=== PATIENT | male | born 1960 | race Caucasian/White ===

== ENCOUNTER 2019-06-20 08:28 | Emergency (ER) | payer MEDICAID ==
[2019-06-20] MEDS ORDERED: Sodium Chloride 0.9% 1,000 ML IV ONE (08:36)
[2019-06-20] MEDS: Sodium Chloride 0.9% 10 ML Syringe FLUSH PRN ×2 (08:54→10:58)
[2019-06-20 09:09] LABS: CHLORIDE,CL 97 mmol/L (98-107); SODIUM,NA 139 mmol/L (136-145)
[2019-06-20] MEDS ORDERED: Sodium Chloride 0.9% 10 ML Syringe FLUSH PRN (09:10)
[2019-06-20] MEDS ORDERED: Potassium Chloride 10 MEQ in Premix Bag 1 BAG IV ONE ×2 (09:11→10:45)
[2019-06-20 09:41] LABS: BARBITURATE SCREEN,URINE NEGATIVE (NEGATIVE); BENZODIAZEPINES SCREEN,URINE NEGATIVE (NEGATIVE); EDDP,URINE SCREEN NEGATIVE (NEGATIVE); TCA SCREEN,URINE NEGATIVE (NEGATIVE); THC SCREEN,URINE 50 NG/ML NEGATIVE (NEGATIVE)
[2019-06-20] MEDS ORDERED: Pantoprazole 40 MG Vial IVPUSH ONE (09:49)
[2019-06-20] MEDS ORDERED: Nicotine 21 MG/24 Hr Patch TRDERM ONE (10:27)
--- NOTE | 2019-06-20 10:34 | EDM.PDOC ---
ED HPI GENERAL MEDICAL PROBLEM - General Chief Complaint: General Stated Complaint: dry heaving, black stools, chills Time Seen by Provider: 06/20/19 08:35 Source of Information: Reports: Patient History Limitations: Reports: No Limitations - History of Present Illness INITIAL COMMENTS - FREE TEXT/NARRATIVE: Patient comes to ER with two week history of chills/sweats/black stools/dry heaves. No bloody emesis. No reported history of GI bleeds in past. Is daily drinker. Reports he is trying to "cut down" and indicates that he has "2 drinks a day". Heavy smoker. 1.5PPD. No fevers. No reported weight changes but says he has been drinking mostly Gatorade and has not had much in the way of food. Up to 4-5 episodes dry heaves/dark stools daily. Only pain complaint is rib discomfort which he attributes to dry heaves. Feels weak. Easily tires going up stairs. No other acute changes reported. - Related Data Allergies Allergy/AdvReac Type Severity Reaction Status Date / Time No Known Allergies Allergy Verified 06/20/19 08:57 Home Meds: Home Meds Ibuprofen 1 - 2 tab PO Q6H PRN 11/03/18 [History] Past Medical History HEENT History: Reports: Allergic Rhinitis Cardiovascular History: Reports: Hypertension Respiratory History: Reports: Bronchitis, Recurrent, COPD, Pneumonia, Recurrent , Pulmonary Fibrosis Gastrointestinal History: Reports: Chronic Constipation, Colon Polyp, Other ( See Below) Other Gastrointestinal History: Tubular adenomas excised at the cecum, transverse colon, and 25 cm via colonoscopy on 05/05/16 Genitourinary History: Reports: BPH, Prostate Disorder, Other (See Below) Other Genitourinary History: Erectile dysfunction, history of PSA elevation Musculoskeletal History: Reports: Arthritis, Neck Pain, Chronic, Osteoarthritis , Osteoporosis Neurological History: Reports: None Psychiatric History: Reports: Addiction, Anxiety, Depression, Other (See Below) Other Psychiatric History: ETOH abuse, previous illicit drug use Endocrine/Metabolic History: Reports: Osteoporosis Immunologic History: Reports: None Oncologic (Cancer) History: Reports: None Dermatologic History: Reports: None - Infectious Disease History Infectious Disease History: Reports: Chicken Pox, Mumps - Past Surgical History Head Surgeries/Procedures: Reports: None HEENT Surgical History: Reports: Oral Surgery, Other (See Below) Cardiovascular Surgical History: Reports: None GI Surgical History: Reports: Colonoscopy, Polypectomy, Other (See Below) Male Surgical History: Reports: Circumcision, Other (See Below) Endocrine Surgical History: Reports: None Neurological Surgical History: Reports: None Oncologic Surgical History: Reports: None Dermatological Surgical History: Reports: None - Past Imaging History Past Imaging History: Reports: Ultrasound (Abdominal aortic ultrasound on ) Social & Family History - Family History HEENT: Reports: None. Denies: Glaucoma, Macular Degeneration, Retinal Detachment Cardiac: Reports: Aneurysm, Bypass, CAD, Hypertension, CT, Other (See Below) Other Cardiac Family History: Father with three-vessel CABG in his 60s, father with abdominal aortic aneurysm in fatal thoracic aortic aneurysm rupture in his 80s, parents with hypertension Respiratory: Reports: None. Denies: COPD, PE, Sleep Apnea GI: Reports: Cholelithiasis, Colon Polyps, Other (See Below) Other GI Family History: Brother with history of colonic polyps and cholelithiasis : Reports: None. Denies: Dialysis, Renal Calculus, Renal Disease/ Insufficiency OBGYN: Reports: None. Denies: Endometriosis, Recurrent Spontaneous Musculoskeletal: Reports: Arthritis, Osteoarthritis, Other (See Below) Other Musculoskeletal Family History: Father with osteoarthritis Neurological: Reports: CVA, Other (See Below) Other Neurological Family History: Maternal grandfather with fatal CVA in his 50s Psychiatric: Reports: None. Denies: Abuse, Victim of, Anxiety, Depression, Psych Hospitalization(s), Suicide Attempt Endocrine/Metabolic: Reports: None. Denies: Diabetes, Type I, Diabetes, type II , Hypothyroidism, IDDM Hematologic: Reports: None. Denies: Anemia, SLE Immunologic: Reports: None. Denies: AIDS, HIV, SLE Dermatologic: Reports: None. Denies: Eczema, Psoriasis Oncologic: Reports: Lung, Metastatic, Other (See Below) Other Oncologic Family History: Sister with fatal metastatic lung cancer at age 49 with no history of tobacco use - Tobacco Use Smoking Status *Q: Current Every Day Smoker Packs/Tins Daily: 1.5 - Caffeine Use Caffeine Use: Reports: Soda Other Caffeine Use: 1 can per day - Alcohol Use Alcohol Use History: Yes Alcohol Use Frequency: Daily - Recreational Drug Use Recreational Drug Use: No Drug Use in Last 12 Months: No ED ROS GENERAL - Review of Systems Review Of Systems: See Below Constitutional: Reports: Chills, Weakness, Fatigue, Diaphoresis, Decreased Appetite. Denies: Fever HEENT: Reports: Sinus Problem (mild congestion). Denies: Throat Pain, Vertigo, Vision Change Respiratory: Reports: Cough (chronic, unchanged), Sputum (chronic/unchanged. COPD/Smoker). Denies: Shortness of Breath, Wheezing, Pleuritic Chest Pain Cardiovascular: Reports: Edema (mild, around ankles, chronic and unchanged). Denies: Chest Pain, Dyspnea on Exertion, Lightheadedness GI/Abdominal: Reports: Black Stool, Diarrhea, Decreased Appetite, Nausea, Vomiting. Denies: Abdominal Pain, Distension : Reports: No Symptoms Musculoskeletal: Reports: Other (no acute changes from baseline except for rib discomfort) Skin: Reports: No Symptoms Neurological: Reports: Weakness (global). Denies: Confusion, Dizziness, Headache, Paresthesia Psychiatric: Reports: No Symptoms ED EXAM, GENERAL - Physical Exam Exam: See Below Exam Limited By: No Limitations General Appearance: Alert, Other (noted to be a little wobbly when ambulating into ER, smells heavily of cigarette smoke) Eye Exam: Bilateral Eye: EOMI, PERRL Nose: No: Nasal Deformity, Nasal Swelling, Nasal Drainage Throat/Mouth: Normal Lips, Normal Voice, No Airway Compromise Head: Atraumatic, Normocephalic Neck: Supple, Non-Tender Respiratory/Chest: No Respiratory Distress, Rhonchi (bilaterally), Wheezing ( mild, bilaterally). No: Crackles, Rales Cardiovascular: No Murmur, Tachycardia Peripheral Pulses: 2+: Radial (L), Radial (R) GI/Abdominal: Soft, Non-Tender, No Distention, Abnormal Bowel Sounds (decreased throughout) (Male) Exam: Deferred Rectal (Males) Exam: Deferred Back Exam: No: CVA Tenderness (L), CVA Tenderness (R), Muscle Spasm, Paraspinal Tenderness, Vertebral Tenderness Extremities: Non-Tender, Normal Capillary Refill, Pedal Edema (mild, bilateral/ around ankles) Neurological: Alert, Oriented, No Motor/Sensory Deficits Psychiatric: Normal Affect, Normal Mood Skin Exam: Warm, Dry, Normal Color EKG INTERPRETATION EKG Date: 06/20/19 Time: 09:23 Rhythm: NSR Rate (Beats/Min): 95 [place]: Normal P-Wave: Present QRS: Normal ST-T: Other (No obvious acute changes suggestive of ischemia noted) QT: Prolonged Course - Vital Signs Last Recorded V/S: Last Vital Signs Temp 36.9 C 06/20/19 10:37 Pulse 122 H 06/20/19 10:37 Resp 20 06/20/19 10:37 BP 113/93 H 06/20/19 10:37 Pulse Ox 97 06/20/19 10:37 - Orders/Labs/Meds Orders: Active Orders 24 hr Category Date Time Status EKG Documentation Completion [RC] ASDIRECTED Care 06/20/19 09:11 Ordered RT Aerosol Therapy [RC] ASDIRECTED Care 06/20/19 10:42 Ordered Potassium Chloride [KCl 10 MEQ in Water 50 ML] 10 meq Med 06/20/19 10:45 Ordered Premix Bag 1 bag IV ONETIME Sodium Chloride 0.9% [Saline Flush] Med 06/20/19 08:35 Active 10 ml FLUSH ASDIRECTED PRN Sodium Chloride 0.9% [Saline Flush] Med 06/20/19 09:10 Ordered 10 ml FLUSH ASDIRECTED PRN Saline Lock Insert [OM.PC] Routine Oth 06/20/19 08:36 Ordered Saline Lock Insert [OM.PC] Routine Oth 06/20/19 09:10 Ordered Medication Orders Sodium Chloride (Saline Flush) 10 ml FLUSH ASDIRECTED PRN PRN Reason: Keep Vein Open Last Admin: 06/20/19 08:54 Dose: 10 ml Sodium Chloride (Saline Flush) 10 ml FLUSH ASDIRECTED PRN PRN Reason: Keep Vein Open Labs: Laboratory Tests 06/20/19 06/20/19 06/20/19 Range/Units 08:40 08:48 08:48 WBC 8.4 (4.0-10.2) K/uL RBC 2.87 L (4.33-5.41) M/uL Hgb 10.9 L D (13.1-16.8) g/dL Hct 31.9 L (39.0-49.0) % MCV 111.1 H D (84.0-98.0) fL MCH 38.0 H (28.2-33.3) pg MCHC 34.2 (31.7-36.0) g/dL RDW 13.7 (11.2-14.1) % Plt Count 93 L (150-350) K/uL Neut % (Auto) 81.3 H (45.0-80.0) % Lymph % (Auto) 9.1 L (10.0-50.0) % Wake % (Auto) 9.2 (2.0-14.0) % Eos % (Auto) 0.2 (0.0-5.0) % Baso % (Auto) 0.2 (0.0-2.0) % Neut # (Auto) 6.81 (1.40-7.00) K/uL Lymph # (Auto) 0.76 (0.50-3.50) K/uL Wake # (Auto) 0.77 (0.00-1.00) K/uL Eos # (Auto) 0.02 (0.00-0.50) K/uL Baso # (Auto) 0.02 (0.00-0.20) K/uL Sodium 139 (136-145) mmol/L Potassium 2.4 L* (3.5-5.1) mmol/L Chloride 97 L (98-107) mmol/L Carbon Dioxide 27.9 (21.0-32.0) mmol/L BUN 7 (7-18) mg/dL Creatinine 0.78 (0.51-1.17) mg/dL Est Cr Clr Drug Dosing TNP Estimated GFR (MDRD) > 60 mL/min Glucose 127 H (74-106) mg/dL Lactic Acid (0.4-2.0) mmol/L Calcium 7.6 L (8.5-10.1) mg/dL Magnesium 0.7 L (1.8-2.4) mg/dL Total Bilirubin 2.6 H (0.2-1.0) mg/dL AST 152 H (15-37) U/L ALT 58 (12-78) U/L Alkaline Phosphatase 170 H (46-116) IU/L Total Protein 6.4 (6.4-8.2) g/dL Albumin 2.6 L (3.4-5.0) g/dL Specimen Type Urine Color Urine Appearance Urine pH (5.0-9.0) Ur Specific [place] (1.005-1.030) Urine Protein (NEGATIVE) mg/dL Urine Glucose (UA) (NEGATIVE) mg/dL Urine Ketones (NEGATIVE) mg/dL Urine Occult Blood (NEGATIVE) Urine Nitrite (NEGATIVE) Urine Bilirubin (NEGATIVE) Urine Urobilinogen (0.2-1.0) E.U./dL Ur Leukocyte Esterase (NEGATIVE) Urine RBC /HPF Urine WBC /HPF Ur Epithelial Cells /LPF Amorphous Sediment (0/HPF) /HPF Urine Opiates Screen (NEGATIVE) Ur Buprenorphine Scrn (NEGATIVE) Ur Oxycodone Screen (NEGATIVE) Ur EDDP (Meth Metab) (NEGATIVE) Ur Barbiturates Screen (NEGATIVE) Ur Tricyclics Screen (NEGATIVE) Ur Amphetamine Screen (NEGATIVE) U Methamphetamines Scrn (NEGATIVE) Urine MDMA Screen (NEGATIVE) U Benzodiazepines Scrn (NEGATIVE) U Cocaine Metab Screen (NEGATIVE) U Marijuana (THC) Screen (NEGATIVE) Ethyl Alcohol 0.002 (0.000-0.080) g/dL 06/20/19 06/20/19 06/20/19 Range/Units 08:48 09:15 09:15 WBC (4.0-10.2) K/uL RBC (4.33-5.41) M/uL Hgb (13.1-16.8) g/dL Hct (39.0-49.0) % MCV (84.0-98.0) fL MCH (28.2-33.3) pg MCHC (31.7-36.0) g/dL RDW (11.2-14.1) % Plt Count (150-350) K/uL Neut % (Auto) (45.0-80.0) % Lymph % (Auto) (10.0-50.0) % Wake % (Auto) (2.0-14.0) % Eos % (Auto) (0.0-5.0) % Baso % (Auto) (0.0-2.0) % Neut # (Auto) (1.40-7.00) K/uL Lymph # (Auto) (0.50-3.50) K/uL Wake # (Auto) (0.00-1.00) K/uL Eos # (Auto) (0.00-0.50) K/uL Baso # (Auto) (0.00-0.20) K/uL Sodium (136-145) mmol/L Potassium (3.5-5.1) mmol/L Chloride (98-107) mmol/L Carbon Dioxide (21.0-32.0) mmol/L BUN (7-18) mg/dL Creatinine (0.51-1.17) mg/dL Est Cr Clr Drug Dosing Estimated GFR (MDRD) mL/min Glucose (74-106) mg/dL Lactic Acid 4.9 H (0.4-2.0) mmol/L Calcium (8.5-10.1) mg/dL Magnesium (1.8-2.4) mg/dL Total Bilirubin (0.2-1.0) mg/dL AST (15-37) U/L ALT (12-78) U/L Alkaline Phosphatase (46-116) IU/L Total Protein (6.4-8.2) g/dL Albumin (3.4-5.0) g/dL Specimen Type Urinblad Urine Color Holly Urine Appearance Turbid Urine pH 5.5 (5.0-9.0) Ur Specific [place] 1.025 (1.005-1.030) Urine Protein 100 H (NEGATIVE) mg/dL Urine Glucose (UA) 100 H (NEGATIVE) mg/dL Urine Ketones 15 H (NEGATIVE) mg/dL Urine Occult Blood Negative (NEGATIVE) Urine Nitrite Positive H (NEGATIVE) Urine Bilirubin Large H (NEGATIVE) Urine Urobilinogen 2.0 H (0.2-1.0) E.U./dL Ur Leukocyte Esterase Negative (NEGATIVE) Urine RBC Not seen /HPF Urine WBC Not seen /HPF Ur Epithelial Cells Not seen /LPF Amorphous Sediment Many H (0/HPF) /HPF Urine Opiates Screen Negative (NEGATIVE) Ur Buprenorphine Scrn Negative (NEGATIVE) Ur Oxycodone Screen Negative (NEGATIVE) Ur EDDP (Meth Metab) Negative (NEGATIVE) Ur Barbiturates Screen Negative (NEGATIVE) Ur Tricyclics Screen Negative (NEGATIVE) Ur Amphetamine Screen Negative (NEGATIVE) U Methamphetamines Scrn Negative (NEGATIVE) Urine MDMA Screen Negative (NEGATIVE) U Benzodiazepines Scrn Negative (NEGATIVE) U Cocaine Metab Screen Negative (NEGATIVE) U Marijuana (THC) Screen Negative (NEGATIVE) Ethyl Alcohol (0.000-0.080) g/dL Meds: Medications Generic Name Dose Route Start Last Admin Trade Name Freq PRN Reason Stop Dose Admin Sodium Chloride 10 ml 06/20/19 08:35 06/20/19 08:54 Saline Flush FLUSH 10 ml ASDIRECTED PRN Administration Keep Vein Open Sodium Chloride 10 ml 06/20/19 09:10 Saline Flush FLUSH ASDIRECTED PRN Keep Vein Open Discontinued Medications Generic Name Dose Route Start Last Admin Trade Name Leticia PRN Reason Stop Dose Admin Albuterol/Ipratropium 3 ml 06/20/19 10:42 Duoneb 3.0-0.5 Mg/3 Ml NEB 06/20/19 10:43 ONETIME ONE Sodium Chloride 1,000 mls @ 999 mls/hr 06/20/19 08:36 06/20/19 08:53 Normal Saline IV 06/20/19 09:36 999 mls/hr .BOLUS ONE Administration Magnesium Sulfate/Dextrose 1 100 mls @ 100 mls/hr 06/20/19 09:10 06/20/19 09: 47 gm/ Premix IV 06/20/19 10:09 100 mls/hr ONETIME ONE Administration Potassium Chloride 10 meq/ 50 mls @ 50 mls/hr 06/20/19 09:11 06/20/19 09:38 Premix IV 06/20/19 10:10 50 mls/hr ONETIME ONE Administration Nicotine 21 mg 06/20/19 10:27 Habitrol TRDERM 06/20/19 10:28 ONETIME ONE Pantoprazole Sodium 80 mg 06/20/19 09:49 Protonix Iv IVPUSH 06/20/19 09:50 .BOLUS ONE - Re-Assessments/Exams Free Text/Narrative Re-Assessment/Exam: Significantly low Mg and K noted. Negative drug screen. Minimal ETOH noted on lab. Hgb 10.9 AST and Alk phos elevated. Elevated lactic acid 4.9 Fluid bolus ordered. Replacement Mg and K ordered. Protonix given. + for occult blood. Vital signs stable overall. Given the persistent dark stools reported by patient he will likely need to be evaluated by GI and have upper endoscopy performed. Call placed to [facility] and patient accepted for transfer by from the ER. Patient has history of noncompliance with medications. Was prescribed antihypertensive in past and told to take K supplementation but elected not to. Receiving no treatment for COPD. Given DuoNeb prior to transfer. Patient resting comfortably. Reading a book. Departure - Departure Time of Disposition: 10:49 Disposition: DC/Tfer to Acute Hospital 02 Condition: Good Clinical Impression: Hypomagnesemia, Hypokalemia GI bleed Qualifiers: GI bleed type/associated pathology: unspecified gastrointestinal hemorrhage type Qualified Code(s): K92.2 - Gastrointestinal hemorrhage, unspecified - Discharge Information *PRESCRIPTION DRUG MONITORING PROGRAM REVIEWED*: Not Applicable *COPY OF PRESCRIPTION DRUG MONITORING REPORT IN PATIENT MEEK: Not Applicable Referrals: Na Becker, [employer]ELOPER [Primary Care Provider] - Forms: ED Department Discharge Sepsis Event Note - Focused Exam Vital Signs: Vital Signs Temp Pulse Resp BP Pulse Ox 06/20/19 10:37 36.9 C 122 H 20 113/93 H 97 Date Exam was Performed: 06/20/19 Time Exam was Performed: 10:45 - My Orders Last 24 Hours: My Active Orders 06/20/19 08:35 Sodium Chloride 0.9% [Saline Flush] 10 ml FLUSH ASDIRECTED PRN 06/20/19 08:36 Saline Lock Insert [OM.PC] Routine 06/20/19 09:10 Sodium Chloride 0.9% [Saline Flush] 10 ml FLUSH ASDIRECTED PRN Saline Lock Insert [OM.PC] Routine 06/20/19 09:11 EKG Documentation Completion [RC] ASDIRECTED 06/20/19 10:42 RT Aerosol Therapy [RC] ASDIRECTED 06/20/19 10:45 Potassium Chloride [KCl 10 MEQ in Water 50 ML] 10 meq Premix Bag 1 bag IV ONETIME - Assessment/Plan Last 24 Hours: My Active Orders 06/20/19 08:35 Sodium Chloride 0.9% [Saline Flush] 10 ml FLUSH ASDIRECTED PRN 06/20/19 08:36 Saline Lock Insert [OM.PC] Routine 06/20/19 09:10 Sodium Chloride 0.9% [Saline Flush] 10 ml FLUSH ASDIRECTED PRN Saline Lock Insert [OM.PC] Routine 06/20/19 09:11 EKG Documentation Completion [RC] ASDIRECTED 06/20/19 10:42 RT Aerosol Therapy [RC] ASDIRECTED 06/20/19 10:45 Potassium Chloride [KCl 10 MEQ in Water 50 ML] 10 meq Premix Bag 1 bag IV ONETIME
[2019-06-20] MEDS ORDERED: Albuterol/Ipratropium 3.0-0.5 MG/3 ML Neb Soln NEB ONE (10:42)
[2019-06-20] MEDS ORDERED: Pantoprazole 40 MG Vial ONE (10:46)
[2019-06-20] MEDS ORDERED: Sodium Chloride 0.9% 1,000 ML IV SCH (11:30)
[2019-06-20 12:33] VITALS: BP 120/78; PULSE 98
== END 2019-06-20 11:22 ==
LOC: LL.ED 08:28
DX: K92.2 Gastrointestinal hemorrhage, unspecified (principal); E83.42 Hypomagnesemia; E87.6 Hypokalemia; F17.210 Nicotine dependence, cigarettes, uncomplicated; I10 Essential (primary) hypertension
CPT/HCPCS: 36415; 80053; 80305; 80320; 81001; 82272; 83605; 83735; 85025; 93005; 94640; 96361; 96365; 96366; 96368; 96375; 96376; 99285; A9270; C9113; J3475; J3480; J7030; G0480; J7620-GY

== ENCOUNTER 2019-09-11 08:47 | Emergency (ER) | payer MEDICAID ==
[2019-09-11] MEDS ORDERED: Sodium Chloride 0.9% 10 ML Syringe FLUSH PRN (09:00)
[2019-09-11] MEDS ORDERED: Sodium Chloride 0.9% 1,000 ML IV ONE (09:01)
[2019-09-11 09:29] LABS: CHLORIDE,CL 105 mmol/L (98-107); SODIUM,NA 139 mmol/L (136-145)
[2019-09-11] MEDS ORDERED: Iopamidol 612 MG/ML 100 ML Bottle IVPUSH ONE (09:41)
--- NOTE | 2019-09-11 11:07 | EDM.PDOC ---
ED HPI GENERAL MEDICAL PROBLEM - General Chief Complaint: Abdominal Pain Stated Complaint: bowel obstruction Time Seen by Provider: 09/11/19 09:00 Source of Information: Reports: Patient History Limitations: Reports: No Limitations - History of Present Illness INITIAL COMMENTS - FREE TEXT/NARRATIVE: Pt presents with abdominal distention concerned about bowel obstruction Was seen in clinic several days for same but much worse today No fever Is passing some liquid stool No N/V No trauma No travel hx No hx/o same in the past Onset: Gradual Duration: Day(s): Location: Reports: Abdomen Severity: Moderate Treatments 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: Other Medication(s) Abdominal Pain Score (Numeric/FACES): 8 - Related Data Allergies Allergy/AdvReac Type Severity Reaction Status Date / Time levofloxacin [From Levaquin] Allergy Other Verified 09/11/19 09:22 Home Meds: Home Meds Ibuprofen 1 - 2 tab PO Q6H PRN 11/03/18 [History] Folic Acid 1 tab PO DAILY 09/11/19 [History] Furosemide 20 mg PO DAILY 09/11/19 [History] Lisinopril [Zestril] 20 mg PO DAILY PRN 09/11/19 [History] Ondansetron [Zofran] 4 mg PO QID PRN 09/11/19 [History] Pantoprazole Sodium [Protonix] 1 dose PO DAILY 09/11/19 [History] Past Medical History HEENT History: Reports: Allergic Rhinitis Cardiovascular History: Reports: Hypertension Respiratory History: Reports: Bronchitis, Recurrent, COPD, Pneumonia, Recurrent , Pulmonary Fibrosis Gastrointestinal History: Reports: Chronic Constipation, Colon Polyp, Other ( See Below) Other Gastrointestinal History: Tubular adenomas excised at the cecum, transverse colon, and 25 cm via colonoscopy on 05/05/16 Genitourinary History: Reports: BPH, Prostate Disorder, Other (See Below) Other Genitourinary History: Erectile dysfunction, history of PSA elevation Musculoskeletal History: Reports: Arthritis, Neck Pain, Chronic, Osteoarthritis , Osteoporosis Neurological History: Reports: None Psychiatric History: Reports: Addiction, Anxiety, Depression, Other (See Below) Other Psychiatric History: ETOH abuse, previous illicit drug use Endocrine/Metabolic History: Reports: Osteoporosis Immunologic History: Reports: None Oncologic (Cancer) History: Reports: Prostate Dermatologic History: Reports: None - Infectious Disease History Infectious Disease History: Reports: Chicken Pox, Mumps - Past Surgical History Head Surgeries/Procedures: Reports: None HEENT Surgical History: Reports: Oral Surgery, Other (See Below) Cardiovascular Surgical History: Reports: None GI Surgical History: Reports: Colonoscopy, Polypectomy, Other (See Below) Male Surgical History: Reports: Circumcision, Other (See Below) Endocrine Surgical History: Reports: None Neurological Surgical History: Reports: None Oncologic Surgical History: Reports: None, Biopsy of Breast Dermatological Surgical History: Reports: None - Past Imaging History Past Imaging History: Reports: Ultrasound (Abdominal aortic ultrasound on ) Social & Family History - Family History HEENT: Reports: None Cardiac: Reports: Aneurysm, Bypass, CAD, Hypertension, [place], Other (See Below) Other Cardiac Family History: Father with three-vessel CABG in his 60s, father with abdominal aortic aneurysm in fatal thoracic aortic aneurysm rupture in his 80s, parents with hypertension Respiratory: Reports: None GI: Reports: Cholelithiasis, Colon Polyps, Other (See Below) Other GI Family History: Brother with history of colonic polyps and cholelithiasis : Reports: None OBGYN: Reports: None Musculoskeletal: Reports: Arthritis, Osteoarthritis, Other (See Below) Other Musculoskeletal Family History: Father with osteoarthritis Neurological: Reports: CVA, Other (See Below) Other Neurological Family History: Maternal grandfather with fatal CVA in his 50s Psychiatric: Reports: None Endocrine/Metabolic: Reports: None Hematologic: Reports: None Immunologic: Reports: None Dermatologic: Reports: None Oncologic: Reports: Lung, Metastatic, Other (See Below) Other Oncologic Family History: Sister with fatal metastatic lung cancer at age 49 with no history of tobacco use - Tobacco Use Smoking Status *Q: Current Every Day Smoker Years of Tobacco use: 40 Packs/Tins Daily: 1.5 - Caffeine Use Caffeine Use: Reports: Soda Other Caffeine Use: 1 can per day ED ROS GENERAL - Review of Systems Review Of Systems: See Below Constitutional: Reports: No Symptoms Respiratory: Reports: No Symptoms Cardiovascular: Reports: No Symptoms GI/Abdominal: Reports: Abdominal Pain, Distension ED EXAM, GI/ABD - Physical Exam Exam: See Below Exam Limited By: No Limitations General Appearance: Mild Distress Throat/Mouth: Normal Oropharynx Neck: Supple Respiratory/Chest: Lungs Clear Cardiovascular: Regular Rate, Rhythm GI/Abdominal Exam: Distended, Tender Extremities: Normal Inspection Course - Vital Signs Last Recorded V/S: Last Vital Signs Temp 98.4 F 09/11/19 08:49 Pulse 100 09/11/19 08:49 Resp 18 09/11/19 08:49 BP 102/73 09/11/19 08:49 Pulse Ox 100 09/11/19 08:49 - Orders/Labs/Meds Orders: Active Orders 24 hr Category Date Time Status Peripheral IV Care [RC] . DIRECTED Care 09/11/19 09:00 Active Abdomen Pelvis w Cont [CT] Stat Exams 09/11/19 09:37 Taken LIPASE [CHEM] Stat Lab 09/11/19 10:57 Ordered Sodium Chloride 0.9% [Saline Flush] Med 09/11/19 09:00 Active 10 ml FLUSH ASDIRECTED PRN Peripheral IV Insertion Adult [OM.PC] Routine Oth 09/11/19 09:00 Ordered Medication Orders Sodium Chloride (Saline Flush) 10 ml FLUSH ASDIRECTED PRN PRN Reason: Keep Vein Open Labs: Laboratory Tests 09/11/19 09/11/19 Range/Units 09:07 09:07 WBC 8.8 (4.0-10.2) K/uL RBC 3.38 L (4.33-5.41) M/uL Hgb 10.0 L (13.1-16.8) g/dL Hct 31.0 L (39.0-49.0) % MCV 91.7 D (84.0-98.0) fL MCH 29.6 (28.2-33.3) pg MCHC 32.3 (31.7-36.0) g/dL RDW 14.0 (11.2-14.1) % Plt Count 33 L* (150-350) K/uL Neut % (Auto) 75.4 (45.0-80.0) % Lymph % (Auto) 11.8 (10.0-50.0) % Morton % (Auto) 9.5 (2.0-14.0) % Eos % (Auto) 2.7 (0.0-5.0) % Baso % (Auto) 0.6 (0.0-2.0) % Neut # (Auto) 6.66 (1.40-7.00) K/uL Lymph # (Auto) 1.04 (0.50-3.50) K/uL Morton # (Auto) 0.84 (0.00-1.00) K/uL Eos # (Auto) 0.24 (0.00-0.50) K/uL Baso # (Auto) 0.05 (0.00-0.20) K/uL Sodium 139 (136-145) mmol/L Potassium 3.5 (3.5-5.1) mmol/L Chloride 105 (98-107) mmol/L Carbon Dioxide 23.6 (21.0-32.0) mmol/L BUN 13 (7-18) mg/dL Creatinine 1.01 (0.51-1.17) mg/dL Est Cr Clr Drug Dosing TNP Estimated GFR (MDRD) > 60 mL/min Glucose 124 H (74-106) mg/dL Calcium 8.0 L (8.5-10.1) mg/dL Total Bilirubin 1.1 H (0.2-1.0) mg/dL AST 59 H (15-37) U/L ALT 19 (12-78) U/L Alkaline Phosphatase 104 (46-116) IU/L Total Protein 6.1 L (6.4-8.2) g/dL Albumin 2.4 L (3.4-5.0) g/dL Meds: Medications Generic Name Dose Route Start Last Admin Trade Name Freq PRN Reason Stop Dose Admin Sodium Chloride 10 ml 09/11/19 09:00 Saline Flush FLUSH ASDIRECTED PRN Keep Vein Open Discontinued Medications Generic Name Dose Route Start Last Admin Trade Name Freq PRN Reason Stop Dose Admin Sodium Chloride 1,000 mls @ 1,000 mls/hr 09/11/19 09:01 09/11/19 09:10 Normal Saline IV 09/11/19 10:00 1,000 mls/hr .BOLUS ONE Administration Iopamidol 100 ml 09/11/19 09:41 09/11/19 10:10 Isovue-300 (61%) IVPUSH 09/11/19 09:42 100 ml ONETIME ONE Administration - Re-Assessments/Exams Free Text/Narrative Re-Assessment/Exam: 09/11/19 11:[address] report Pt with new onset ascites Also with low platelets D/W [facility] Will accept in transfer Departure - Departure Time of Disposition: 11:15 Disposition: DC/Tfer to Acute Hospital 02 Clinical Impression: Ascites due to alcoholic cirrhosis - Discharge Information Referrals: Na Becker, TALKBACK HOST [Primary Care Provider] - Sepsis Event Note - Evaluation Sepsis Screening Result: No Definite Risk - Focused Exam Vital Signs: Vital Signs Temp Pulse Resp BP Pulse Ox 09/11/19 08:49 98.4 F 100 18 102/73 100 Date Exam was Performed: 09/11/19 Time Exam was Performed: 11:02 - My Orders Last 24 Hours: My Active Orders 09/11/19 09:00 Peripheral IV Care [RC] . DIRECTED Sodium Chloride 0.9% [Saline Flush] 10 ml FLUSH ASDIRECTED PRN Peripheral IV Insertion Adult [OM.PC] Routine 09/11/19 09:37 Abdomen Pelvis w Cont [CT] Stat 09/11/19 10:57 LIPASE [CHEM] Stat - Assessment/Plan Last 24 Hours: My Active Orders 09/11/19 09:00 Peripheral IV Care [RC] . DIRECTED Sodium Chloride 0.9% [Saline Flush] 10 ml FLUSH ASDIRECTED PRN Peripheral IV Insertion Adult [OM.PC] Routine 09/11/19 09:37 Abdomen Pelvis w Cont [CT] Stat 09/11/19 10:57 LIPASE [CHEM] Stat
[2019-09-11 12:55] VITALS: BP 109/74; PULSE 84
== END 2019-09-11 12:40 ==
LOC: LL.ED 08:47
DX: K70.31 Alcoholic cirrhosis of liver with ascites (principal); F17.210 Nicotine dependence, cigarettes, uncomplicated; J44.9 Chronic obstructive pulmonary disease, unspecified; I10 Essential (primary) hypertension; Z88.1 Allergy status to other antibiotic agents; Z79.899 Other long term (current) drug therapy
CPT/HCPCS: 36415; 74177; 80053; 83690; 85025; 96360; 99285; J7030; Q9967

== ENCOUNTER 2022-03-18 14:16 | Emergency (ER) | payer MEDICAID ==
[2022-03-18 14:24] VITALS: BP 105/71; PULSE 64
[2022-03-18] MEDS ORDERED: Sodium Chloride 0.9% 10 ML Syringe FLUSH PRN (15:27)
[2022-03-18 16:11] LABS: CHLORIDE,CL 105 mmol/L (98-107); SODIUM,NA 137 mmol/L (136-145)
[2022-03-18 16:12] LABS: ANION GAP 16.3 meq/L (7-15); ESTIMATED GFR 71 mL/min (>=60)
[2022-03-18] MEDS ORDERED: Iopamidol 612 MG/ML 100 ML Bottle IVPUSH ONE (17:35)
[2022-03-18] MEDS ORDERED: Diatrizoate Meglumine/Diatrizoate Sodium 37% 30 ML Bottle PO ONE (17:35)
== END 2022-03-18 19:30 | disposition left against medical advice (07) ==
LOC: LL.ED 14:16
DX: K40.90 Unilateral inguinal hernia, without obstruction or gangrene, not specified as recurrent (principal); J44.9 Chronic obstructive pulmonary disease, unspecified; F17.210 Nicotine dependence, cigarettes, uncomplicated; Z88.1 Allergy status to other antibiotic agents; Z88.8 Allergy status to other drugs, medicaments and biological substances; Z79.899 Other long term (current) drug therapy
CPT/HCPCS: 36415; 74177; 80053; 81003; 83605; 83690; 83735; 85025; 85610; 86140; 99284; Q9963; Q9967

== ENCOUNTER 2024-02-17 09:41 | Day surgery (SDC) | payer MEDICAID ==
[~2024-02-17 09:41] MED LIST: Midazolam 1 MG/ML 2 ML SDV ONE; Propofol 200 MG/20 ML SDV ONE
[2024-02-17] MEDS ORDERED: Sodium Chloride 0.9% 10 ML Syringe FLUSH PRN (10:00)
[2024-02-17] MEDS: Lactated Ringers 1,000 ML IV SCH (10:09)
[2024-02-17 12:05] VITALS: BP 111/63; PULSE 60
== END 2024-02-17 12:44 | disposition home or self-care (01) ==
LOC: LL.SDS 09:41
PROVIDERS: ATTEND Surgery
DX: Z12.11 Encounter for screening for malignant neoplasm of colon (principal); K62.1 Rectal polyp; J44.9 Chronic obstructive pulmonary disease, unspecified; K21.9 Gastro-esophageal reflux disease without esophagitis; I12.9 Hypertensive chronic kidney disease with stage 1 through stage 4 chronic kidney disease, or unspecified chronic kidney disease; N18.31 Chronic kidney disease, stage 3a; F17.210 Nicotine dependence, cigarettes, uncomplicated; Z79.899 Other long term (current) drug therapy; Z88.8 Allergy status to other drugs, medicaments and biological substances; Z86.010 Personal history of colon polyps
CPT/HCPCS: 45385; J2250; J2704; J7120; 00811